=== PATIENT | male | born 1965 | race Caucasian/White ===

== ENCOUNTER 2019-12-12 06:33 | Emergency (ER) | payer OTHER ==
[2019-12-12] MEDS ORDERED: NS 0.9% 1000 ML** 1,000 ML IV ONE (06:55)
[2019-12-12] MEDS ORDERED: Lorazepam PYXIS KEY PRN (06:56)
[2019-12-12] MEDS ORDERED: LORazepam INJ* 2 MG/ML 1 ML VIAL IV PUSH ONE (06:56)
--- NOTE | 2019-12-12 07:08 | ED ---
Shortness of Breath - HPI Summary HPI Summary: 53 year old male presents with intermittent shortness of the past couple days. He states that 2 weeks ago he had an episode shortness breath that resolved after a couple days which at that time was tested neg for covid. He states that he seemed to get better. Status that he has had fevers and chills. He gets hot and cold flashes and becomes sweaty. He states he feels very weak. He admits to nausea. Denies any chest pain. He admits occasional cough. He has history asthma states this does not feel like his asthma. did take his inhaler a couple times without any relief. He has been isolating from his who is not sick but has been going out into the community. He denies any recent travel. No family history of blood clots. he is not a smoker. He was diagnosed with a cellulitis of his nose. He states that that rash develop a week ago. He states he noticed a lesion in his nose and was applying neosporin but it was not getting better. He was started on Bactrim on Sunday with the rash improving since then. He denies any sinus congestion or sore throat. - History of Current Complaint Chief Complaint: EDShortnessOfBreath Time Seen by Provider: 12/12/19 06:39 - Allergy/Home Medications Allergies/Adverse Reactions: Allergies Allergy/AdvReac Type Severity Reaction Status Date / Time MS Ciprofloxacin [From Cipro] Allergy Hives Verified 08/09/16 13:36 MS NSAIDs [NSAIDs] Allergy Unknown Verified 08/09/16 13:36 Reaction Details MS Penicillins [Penicillins] Allergy Hives Verified 08/09/16 13:36 MS Shellfish Allergy Allergy Swelling Verified 08/09/16 13:36 [Shellfish Allergy] Of Face,Lips,& Throat Home Medications: Home Medications Montelukast Sodium TAB* [Singulair TAB*] 10 mg PO DAILY 12/27/13 [History Confirmed 12/12/19] amLODIPine TAB* [Norvasc 5 mg TAB*] 5 tab PO DAILY 12/27/13 [History Confirmed 12/12/19] Mometasone NASAL (NF) [Nasonex (NF)] 1 - 2 spray BOTH NARES DAILY 03/09/15 [ History Confirmed 12/12/19] Albuterol HFA INHALER* [Ventolin HFA Inhaler*] 2 puff INH .Q4-6H PRN 12/12/19 [ History Confirmed 12/12/19] Benazepril HCl [Lotensin-] 20 mg PO DAILY 12/12/19 [History Confirmed 12/12/19] Fluocinonide 0.05% CREAM(NF) 1 applic TOPICAL .BID-TID 12/12/19 [History Confirmed 12/12/19] Ipratropium Br (Nf)0.03% Nasal [Ipratropium [place]] 0.06 % BOTH NARES TID 12/11 [History Confirmed 12/12/19] Olopatadine 0.1% OPHTH (NF) [Patanol 0.1% OPHTH (NF)] 1 drop BOTH EYES BID PRN 12/12/19 [History Confirmed 12/12/19] Sulfamethox/Trimethoprim DS* [Bactrim DS 800/160 TAB*] 1 tab PO BID 12/12/19 [ History Confirmed 12/12/19] Triamcinolone 0.1% CREAM (NF) [Kenalog 0.1% Cream (NF)] 1 applic TOPICAL BID 06/22 [History Confirmed 12/12/19] traMADol TAB* [Ultram*] 50 mg PO Q6HR PRN 12/12/19 [History Confirmed 12/12/19] PMH/Surg Hx/FS Hx/Imm Hx Endocrine/Hematology History: Denies: Hx Diabetes, Hx Thyroid Disease Cardiovascular History: Reports: Hx Hypertension - WELL CONTROLLED Denies: Hx Congestive Heart Failure Respiratory History: Reports: Hx Asthma Denies: Hx Chronic Obstructive Pulmonary Disease (COPD) GI History: Denies: Hx Ulcer History: Reports: Hx Kidney Stones - LEFT RENAL CALCULI Denies: Hx Renal Disease Sensory History: Denies: Hx Contacts or Glasses, Hx Hearing Aid Opthamlomology History: Denies: Hx Contacts or Glasses - Surgical History Surgery Procedure, Year, and Place: L ESWL 03/11/15 Hx Anesthesia Reactions: No Infectious Disease History: No Infectious Disease History: Denies: Hx Hepatitis, Hx Human Immunodeficiency Virus (HIV), History Other Infectious Disease, Traveled Outside the [place] in Last 30 Days - Family History Known Family History: Negative: Blood Disorder - Social History Alcohol Use: Occasionally Alcohol Amount: 1-2 drinks Substance Use Type: Reports: None Smoking Status (MU): Never Smoked Tobacco Review of Systems Positive: Fever, Chills, Fatigue Negative: Chest Pain Positive: Shortness Of Breath, Cough Positive: Abdominal Pain, Nausea. Negative: Vomiting, Diarrhea All Other Systems Reviewed And Are Negative: Yes Physical Exam Triage Information Reviewed: Yes Vital Signs On Initial Exam: Initial Vitals Temp Pulse Resp BP Pulse Ox 99.0 F 100 20 161/93 100 12/12/19 06:35 12/12/19 06:35 12/12/19 06:35 12/12/19 06:35 12/12/19 06:35 Vital Signs Reviewed: Yes Appearance: Positive: Well-Appearing Skin: Positive: Warm, Dry Head/Face: Positive: Normal Head/Face Inspection Eyes: Positive: Normal, Conjunctiva Clear Respiratory/Lung Sounds: Positive: Clear to Auscultation, Breath Sounds Present Cardiovascular: Positive: Normal, RRR Abdomen Description: Positive: Nontender, Soft Bowel Sounds: Positive: Present Musculoskeletal: Positive: Normal Neurological: Positive: Normal Psychiatric: Positive: Normal Procedures - Sedation Patient Received Moderate/Deep Sedation with Procedure: No Diagnostics - Vital Signs Vital Signs Temp Pulse Resp BP Pulse Ox 12/12/19 06:35 99.0 F 100 20 161/93 100 - Laboratory Result Diagrams: 12/12/19 07:35 12/12/19 07:35 Lab Statement: Any lab studies that have been ordered have been reviewed, and results considered in the medical decision making process. - CT cta CT Interpretation Completed By: Radiologist Summary of CT Findings: #. Negative for pulmonary embolism. #. No acute intrathoracic process evident. #. Consider noncontrast CT follow-up of the low suspicion based on location and morphology nodule at the RIGHT middle lobe in 6- 12 months. - EKG No standard instances Cardiac Rate: NL EKG Rhythm: Sinus Rhythm Summary of EKG Findings: sinus rhythm Re-Evaluation - Re-Evaluation First Eval Re-Evaluation Time: 08:24 Change: Improved Comment: feeling better after ativan no longer hyperventilating Second Eval Re-Evaluation Time: 09:54 Comment: feeling better, discussed results Course/Dx - Course Course Of Treatment: 53 year old male presents with intermittent shortness of the past couple days. He states that 2 weeks ago he had an episode shortness breath that resolved after a couple days which at that time was tested neg for covid. He states that he seemed to get better. Status that he has had fevers and chills. He gets hot and cold flashes and becomes sweaty. He states he feels very weak. He admits to nausea. Denies any chest pain. He admits occasional cough. He has history asthma states this does not feel like his asthma. did take his inhaler a couple times without any relief. He has been isolating from his who is not sick but has been going out into the community. He denies any recent travel. No family history of blood clots. he is not a smoker. He was diagnosed with a cellulitis of his nose. He states that that rash develop a week ago. He states he noticed a lesion in his nose and was applying neosporin but it was not getting better. He was started on Bactrim on Sunday with the rash improving since then. He denies any sinus congestion or sore throat. On exam is tachypneic. when is distracted resp rate decreased. lungs CTA. wbc normal. ekg sinus rhythm. troponin zero. flu neg. d-dimer elevated. crp elevated. carbon dioxide low likely due to hyperventilation. CTA shows no acute findings. tested for covid. will treat supporatively. patient understand and agrees with plan. - Diagnoses Differential Diagnosis/HQI/PQRI: Positive: Bronchitis, Pneumonia, Pulmonary Embolism Provider Diagnoses: Shortness of breath, Viral syndrome Discharge ED - Sign-Out/Discharge Documenting (check all that apply): Patient Departure - Discharge Plan Condition: Good Disposition: HOME Patient Education Materials: Viral Syndrome (ED) Forms: COVID-19 Tested & Isolation Referrals: Arjun Ayon MD [Primary Care Provider] - Additional Instructions: You have been tested for coronavirus. The department of health will contact you with results when available and with any additional instruction. You should stay in your house and self quarantine. You should wear a mask if you're outside of your personal room. We encourage handwashing as well as limited contact with other people. Use tyenlol every 6 hours for fever Drink plenty of fluids and rest Return to ED if develop severe shortness of breath or any new or worsening symptoms - Billing Disposition and Condition Condition: GOOD Disposition: Home - Attestation Statements Provider Attestation: I was available for consultation for this patient. I did not evaluate the patient or participate in any medical decision making or disposition decisions unless I am specifically named in the chart as having consulted on the patient. If I have consulted on the patient, please see my own ED note on the patient encounter. Prince Boogie MD
[2019-12-12] MEDS ORDERED: Lorazepam PYXIS KEY ONE (07:12)
[2019-12-12] MEDS ORDERED: Ondansetron INJ* 2 MG/ML VIAL IV ONE (07:20)
[2019-12-12] MEDS ORDERED: Ondansetron INJ* 2 MG/ML VIAL ONE (07:22)
[2019-12-12 07:52] LABS: ABS Eosinophils 0.1 10^3/ul (0-0.6); ABS Monocytes 0.5 10^3/ul (0-0.8); ABS Neutrophils 5.5 10^3/ul (1.5-7.7); Eosinophil % 1.9 %; Hematocrit 40 % (42-52); Lymphocyte % 13.9 %; Mean Corpuscular HGB Conc 35 g/dL (31-36); Mean Corpuscular Hemoglobin 30 pg (27-31); Mean Corpuscular Volume 88 fL (80-94); Mean Platelet Volume 8.3 fL (7.4-10.4); Platelet Count 426 10^3/uL (150-450); Red Blood Count 4.59 10^6 /uL (4.18-5.48); Red Cell Distribution Width 13 % (10-15); White Blood Count 7.2 10^3/uL (3.5-10.8)
[2019-12-12 08:09] LABS: Albumin 3.9 g/dL (3.2-5.2); BUN/Creatinine Ratio 12.1 (8-20); C Reactive Protein 28.03 mg/L (<8.01); Calcium 9.7 mg/dL (8.6-10.3); EGFR African American 47.2 (>60); Globulin 3.9 g/dL (2-4); Potassium 3.9 mmol/L (3.5-5.0); Total Bilirubin 0.5 mg/dL (0.2-1.0); Total Protein 7.8 g/dL (6.4-8.9)
[2019-12-12 08:10] LABS: Influenza A Molecular Negative (Negative); Influenza B Molecular Negative (Negative)
[2019-12-12] MEDS ORDERED: Iodixanol* (CONTRAST) 320 MG/ML 100 ML SDV IV ONE (08:47)
[2019-12-12 10:25] VITALS: BP 121/82
== END 2019-12-12 10:24 | disposition home or self-care (01) ==
LOC: ED 06:33
DX: R06.02 Shortness of breath (principal); B34.9 Viral infection, unspecified; I10 Essential (primary) hypertension; J45.909 Unspecified asthma, uncomplicated; Z79.899 Other long term (current) drug therapy; Z88.0 Allergy status to penicillin; Z88.1 Allergy status to other antibiotic agents; Z88.8 Allergy status to other drugs, medicaments and biological substances
CPT/HCPCS: 36415; 71275; 80053; 83605; 83880; 84484; 85025; 85379; 86140; 87040; 87635; 93005; 96361; 96374; 96375; 99283; G2023; J2060; J2405; Q9967